=== PATIENT | male | born 1955 | race Asian ===

== ENCOUNTER 2016-11-25 17:53 | Observation (INO) | payer MEDICARE ==
[~2016-11-25] VITALS: Ht 160 cm; Wt 71.5 kg
[~2016-11-25 17:53] MED LIST: ASPI-515 PO; IBUP-1 PO; LEVO100T5 PO; LEVO88TA4 PO; LISI-170 PO; METF10002 PO; OXYC1TAB7 PO; PANT40TA3 PO; PARO20TA55 PO; PRED10TA PO; SIMV40TA PO
[2016-11-25] MEDS ORDERED: PARO20TA4 PO (18:26)
[2016-11-25] MEDS ORDERED: SODIUM CHLORIDE FLUSH 10ML SYR IVF ONE (18:30)
[2016-11-25 18:44] LABS: ASPARTATE AMINO TRANSFERASE 33 U/L (15-37); BLOOD UREA NITROGEN 29 mg/dL (7-18)
[2016-11-25 18:49] LABS: IS PT STATUS REG ER OR PRE ER? YES
[2016-11-25 20:37] VITALS: BP 157/92
[2016-11-25] MEDS ORDERED: DOCUSATE 100 MG CAPSULE PO PRN (21:00)
[2016-11-25] MEDS ORDERED: ACETAMINOPHEN 325 MG TABLET PO PRN (21:00)
[2016-11-25] MEDS ORDERED: LABETALOL 5MG/ML, 20ML IVPush PRN (21:00)
[2016-11-25] MEDS: LISINOPRIL 5 MG TABLET PO SCH (21:00)
[2016-11-25 22:21] VITALS: BP 157/97
[2016-11-25] MEDS ORDERED: ALUMINUM/MAG/SIMETHICONE 30 ML UDC PO PRN (22:30)
[2016-11-25] MEDS: ASPIRIN 81 MG TABLET EC PO SCH (23:19)
[2016-11-25] MEDS: HEPARIN 5,000 UNITS/ML, 1ML SQ SCH (23:20)
[2016-11-25] MEDS: TEMAZEPAM 15 MG CAPSULE PO PRN (23:21)
[2016-11-25] MEDS ORDERED: NITROGLYCERIN 0.4 MG BOTTLE (25 TABS) SL PRN (23:30)
[2016-11-25] MEDS: PAROXETINE 20 MG TABLET PO SCH (23:30)
[2016-11-26 00:33] VITALS: BP 134/76
[2016-11-26 01:10] LABS: IS PT STATUS REG ER OR PRE ER? NO
[2016-11-26] MEDS: TEMAZEPAM 15 MG CAPSULE PO PRN ×2 (01:26→23:03)
[2016-11-26 06:58] LABS: BLOOD UREA NITROGEN 33 mg/dL (7-18)
[2016-11-26 07:09] LABS: IS PT STATUS REG ER OR PRE ER? NO
[2016-11-26] MEDS: HEPARIN 5,000 UNITS/ML, 1ML SQ SCH ×3 (07:30→20:45)
[2016-11-26 07:31] VITALS: BP 134/82
[2016-11-26] MEDS ORDERED: REGADENOSON 0.4 MG/5 ML SYRINGE ONE (08:08)
[2016-11-26] MEDS ORDERED: PAROXETINE 20 MG TABLET PO SCH (09:00)
[2016-11-26] MEDS: PAROXETINE 20 MG TABLET PO SCH ×2 (09:00→20:45)
[2016-11-26] MEDS: LEVOTHYROXINE 88 MCG TABLET PO SCH (11:38)
[2016-11-26 14:56] VITALS: BP 131/92
[2016-11-26] MEDS ORDERED: LISI5TAB7 PO (15:13)
[2016-11-26 19:44] VITALS: BP 155/94
[2016-11-26] MEDS: LISINOPRIL 5 MG TABLET PO SCH (20:45)
[2016-11-26] MEDS: ASPIRIN 81 MG TABLET EC PO SCH (20:45)
[2016-11-27] MEDS: TEMAZEPAM 15 MG CAPSULE PO PRN (00:35)
[2016-11-27 05:05] VITALS: BP 133/84
[2016-11-27] MEDS: HEPARIN 5,000 UNITS/ML, 1ML SQ SCH (05:05)
[2016-11-27] MEDS: LEVOTHYROXINE 88 MCG TABLET PO SCH (05:06)
[2016-11-27 05:31] VITALS: BP 136/87
[2016-11-27 06:31] VITALS: BP 137/87
== END 2016-11-27 13:10 | disposition home or self-care (01) ==
LOC: ED 19:42 → INTOOBSV 19:45 → EDIP 19:45 → 5SO 20:32 → 3NW 11-27 05:22
DX: R07.89 Other chest pain (principal); E03.9 Hypothyroidism, unspecified; E11.42 Type 2 diabetes mellitus with diabetic polyneuropathy; E11.65 Type 2 diabetes mellitus with hyperglycemia; F32.9 Major depressive disorder, single episode, unspecified; F41.9 Anxiety disorder, unspecified; I11.0 Hypertensive heart disease with heart failure; I50.32 Chronic diastolic (congestive) heart failure; K21.9 Gastro-esophageal reflux disease without esophagitis; M10.9 Gout, unspecified; M33.20 Polymyositis, organ involvement unspecified; Z79.899 Other long term (current) drug therapy; Z82.0 Family history of epilepsy and other diseases of the nervous system; Z82.3 Family history of stroke
CPT/HCPCS: 36415; 71010; 78452; 80048; 80053; 82962; 83735; 84439; 84443; 84484; 85025; 85610; 85730; 93005; 93017; 96372; 97163; 97166; 99285; A9502; C9898; G0378; J1644; J2785

== ENCOUNTER 2016-12-06 09:28 | Emergency (ER) | payer MEDICARE ==
[~2016-12-06] VITALS: Ht 160 cm; Wt 75.0 kg
[~2016-12-06 09:28] MED LIST changes: +LISI5TAB7 PO; +PARO20TA4 PO
[2016-12-06 11:00] VITALS: BP 143/89
[2016-12-06 11:37] LABS: BLOOD UREA NITROGEN 26 mg/dL (7-18)
[2016-12-06 11:42] LABS: IS PT STATUS REG ER OR PRE ER? YES
== END 2016-12-06 12:46 | disposition home or self-care (01) ==
LOC: ED 10:58
DX: I10 Essential (primary) hypertension (principal); R06.00 Dyspnea, unspecified; E11.9 Type 2 diabetes mellitus without complications; M19.90 Unspecified osteoarthritis, unspecified site; Z88.8 Allergy status to other drugs, medicaments and biological substances
CPT/HCPCS: 36415; 80048; 82040; 83605; 84484; 85025; 93005; 99285

== ENCOUNTER 2017-03-26 19:58 | Emergency (ER) | payer MEDICARE ==
[~2017-03-26] VITALS: Ht 160 cm; Wt 75.0 kg
[~2017-03-26 19:58] MED LIST changes: -IBUP-1 PO; +IBUP-11 PO; -PARO20TA55 PO; +PARO20TA98 PO
[2017-03-26 20:02] VITALS: BP 124/86
[2017-03-26 21:02] LABS: HEMATOCRIT 39.7 % (39.2-51.8); HEMOGLOBIN 13.4 g/dL (13.7-18.0); WHITE BLOOD COUNT 7.4 x10^3/uL (3.4-10)
== END 2017-03-27 02:35 | disposition home or self-care (01) ==
LOC: ED 23:59
DX: M79.605 Pain in left leg (principal); M13.172 Monoarthritis, not elsewhere classified, left ankle and foot; E11.9 Type 2 diabetes mellitus without complications; I10 Essential (primary) hypertension
CPT/HCPCS: 36415; 82945; 83615; 84157; 84550; 84560; 85025; 85651; 85810; 86141; 87070; 87205; 89050; 89051; 89060; 99285

== ENCOUNTER → 2017-06-28 | Outpatient (CLI) | payer MEDICARE | END | disposition home or self-care (01) | LOC: RAD 20:20 | PROVIDERS: ATTEND Family Medicine | DX: J18.9 Pneumonia, unspecified organism (principal) | CPT/HCPCS: 71020 ==

== ENCOUNTER 2017-09-02 23:17 | Emergency (ER) | payer MEDICARE ==
[~2017-09-02] VITALS: Ht 160 cm; Wt 64.0 kg
[~2017-09-02 23:17] MED LIST changes: +PRED20TA PO
[2017-09-03] MEDS ORDERED: OXYcodone/APAP 5/325MG TABLET PO ONE (00:30)
[2017-09-03] MEDS ORDERED: OXYcodone/APAP 5/325MG TABLET ONE (01:07)
[2017-09-03 01:54] VITALS: BP 143/93
== END 2017-09-03 01:57 | disposition home or self-care (01) ==
LOC: ED 09-03 00:17
DX: S06.0X0A Concussion without loss of consciousness, initial encounter (principal); S16.1XXA Strain of muscle, fascia and tendon at neck level, initial encounter; I10 Essential (primary) hypertension; E11.9 Type 2 diabetes mellitus without complications; W19.XXXA Unspecified fall, initial encounter; Y93.89 Activity, other specified; Y92.89 Other specified places as the place of occurrence of the external cause; Y99.8 Other external cause status
CPT/HCPCS: 70450; 72125; 99284

== ENCOUNTER 2017-09-27 15:14 | Emergency (ER) | payer MEDICARE ==
[~2017-09-27] VITALS: Ht 160 cm; Wt 64.0 kg
[2017-09-27 15:21] VITALS: BP 131/88
== END 2017-09-27 18:46 | disposition home or self-care (01) ==
LOC: ED 17:10
DX: S83.91XA Sprain of unspecified site of right knee, initial encounter (principal); M19.90 Unspecified osteoarthritis, unspecified site; E11.9 Type 2 diabetes mellitus without complications; I10 Essential (primary) hypertension; G71.0 Muscular dystrophy; M10.9 Gout, unspecified; W01.0XXA Fall on same level from slipping, tripping and stumbling without subsequent striking against object, initial encounter; Y93.89 Activity, other specified; Y99.8 Other external cause status; Y92.89 Other specified places as the place of occurrence of the external cause
CPT/HCPCS: 99284

== ENCOUNTER 2018-02-05 19:55 | Emergency (ER) | payer MEDICARE, MEDICAID ==
[~2018-02-05] VITALS: Ht 160 cm; Wt 65.0 kg
[2018-02-05 20:03] VITALS: BP 104/72
[2018-02-05] MEDS ORDERED: TRIAMCINOLONE ACETONIDE 40 MG/ML, 1ML MC ONE (21:00)
[2018-02-05] MEDS ORDERED: LIDOCAINE 1%, 10ML INFIL ONE (21:00)
[2018-02-05] MEDS ORDERED: LIDOCAINE-MPF 2%, 2ML ONE (21:03)
[2018-02-05 21:09] LABS: BASOPHILS # (AUTO) 0.04 x10^3/uL (0-0.1); BASOPHILS % (AUTO) 1 % (0-1); EOSINOPHILS # (AUTO) 0.14 x10^3/uL (0-0.4); EOSINOPHILS % (AUTO) 2 % (1-7); LYMPHOCYTES # (AUTO) 1.45 x10^3/uL (1-3.4); LYMPHOCYTES % (AUTO) 24 % (22-44); MD NO; MEAN CORPUSCULAR HEMOGLOBIN 29.4 pg (27.5-34.5); MEAN CORPUSCULAR HGB CONC 33.6 g/dL (33.2-36.2); MEAN CORPUSCULAR VOLUME 87.4 fL (81-97); MEAN PLATELET VOLUME 6.9 fL (7.4-10.4); MONOCYTES # (AUTO) 0.66 x10^3/uL (0.2-0.8); MONOCYTES % (AUTO) 11 % (2-9); NEUTROPHILS # (AUTO) 3.88 x10^3/uL (1.8-6.8); NEUTROPHILS % (AUTO) 63 % (42-75); PLATELET COUNT 369 x10^3/uL (130-400); RED CELL DISTRIBUTION WIDTH 14.5 % (9.4-14.8)
[2018-02-05 21:10] LABS: HCT (SEDRATE) 39.3 % (39.2-51.8)
[2018-02-05 21:21] LABS: ANION GAP 6 mmol/L (5-15); C-REACTIVE PROTEIN, QUANT 0.73 mg/dL (0.02-0.49); CALCIUM 8.4 mg/dL (8.5-10.1); CHLORIDE 104 mmol/L (98-107)
== END 2018-02-06 00:18 | disposition home or self-care (01) ==
LOC: ED 22:58
DX: M13.161 Monoarthritis, not elsewhere classified, right knee (principal); M25.461 Effusion, right knee; I10 Essential (primary) hypertension; M79.661 Pain in right lower leg; Z88.8 Allergy status to other drugs, medicaments and biological substances
CPT/HCPCS: 20610; 36415; 80048; 82040; 84550; 85025; 85651; 85810; 86140; 87070; 87205; 89050; 89060; 99285

== ENCOUNTER 2018-04-30 19:27 | Emergency (ER) | payer MEDICARE, MEDICAID ==
[~2018-04-30] VITALS: Ht 160 cm; Wt 65.0 kg
[2018-04-30 19:36] VITALS: BP 155/93
== END 2018-04-30 20:46 | disposition home or self-care (01) ==
LOC: ED 20:15
DX: S83.92XA Sprain of unspecified site of left knee, initial encounter (principal); I10 Essential (primary) hypertension; Z79.899 Other long term (current) drug therapy; Z88.8 Allergy status to other drugs, medicaments and biological substances; X58.XXXA Exposure to other specified factors, initial encounter; Y93.89 Activity, other specified; Y99.8 Other external cause status; Y92.009 Unspecified place in unspecified non-institutional (private) residence as the place of occurrence of the external cause
CPT/HCPCS: 29505; 99284

== ENCOUNTER 2018-08-01 08:00 | Outpatient (CLI) | payer MEDICARE, MEDICAID ==
[~2018-08-01] VITALS: Ht 160 cm; Wt 68.2 kg
[2018-08-01] MEDS ORDERED: LISI-167 PO (10:25)
== END 2018-08-01 23:59 | disposition home or self-care (01) ==
LOC: CARD 08:00 → EDSTATUS 08-03 07:00
PROVIDERS: ATTEND Colon & Rectal Surgery
DX: Z01.818 Encounter for other preprocedural examination (principal); M25.50 Pain in unspecified joint
CPT/HCPCS: 93005

== ENCOUNTER 2019-01-25 17:18 | Emergency (ER) | payer MEDICARE, MEDICAID ==
[~2019-01-25] VITALS: Ht 160 cm; Wt 68.8 kg
[~2019-01-25 17:18] MED LIST changes: +LISI-167 PO
[2019-01-25 17:42] VITALS: BP 150/89
[2019-01-25 19:28] LABS: BASOPHILS # (AUTO) 0.02 x10^3/uL (0-0.1); BASOPHILS % (AUTO) 0 % (0-1); EOSINOPHILS # (AUTO) 0.12 x10^3/uL (0-0.4); EOSINOPHILS % (AUTO) 1 % (1-7); LYMPHOCYTES # (AUTO) 1.49 x10^3/uL (1-3.4); LYMPHOCYTES % (AUTO) 18 % (22-44); MD NO; MEAN CORPUSCULAR HEMOGLOBIN 29.8 pg (27.5-34.5); MEAN CORPUSCULAR VOLUME 90.5 fL (81-97); MEAN PLATELET VOLUME 8.6 fL (7.4-10.4); MONOCYTES # (AUTO) 1.02 x10^3/uL (0.2-0.8); MONOCYTES % (AUTO) 12 % (2-9); NEUTROPHILS % (AUTO) 69 % (42-75); PLATELET COUNT 212 x10^3/uL (130-400); RED BLOOD COUNT 4.64 x10^6/uL (4.38-5.82); RED CELL DISTRIBUTION WIDTH 14.2 % (9.4-14.8)
[2019-01-25] MEDS ORDERED: COLCHICINE 0.6 MG CAPSULE PO ONE (20:00)
[2019-01-25] MEDS ORDERED: COLCHICINE 0.6 MG CAPSULE ONE (20:10)
== END 2019-01-25 21:27 | disposition home or self-care (01) ==
LOC: ED 20:24
DX: M13.131 Monoarthritis, not elsewhere classified, right wrist (principal); M10.031 Idiopathic gout, right wrist; E11.9 Type 2 diabetes mellitus without complications
CPT/HCPCS: 36415; 73110; 84550; 85025; 85651; 99284; J7512

== ENCOUNTER 2020-04-17 19:40 | Observation (INO) | payer MEDICARE, MEDICAID ==
[~2020-04-17] VITALS: Ht 160 cm; Wt 69.2 kg
--- NOTE | 2020-04-17 19:45 | NUR ---
Note undone in EDM - 04/17/20 at 2358 by LARS Assumed care of pt. A&o x4, answering questions appropriately. States increased weakness/fatigue/SOB x1 week, worsening tonight. Per pt, he had a fall yesterday. (+) head strike, (-) LOC, (-) thinners, no hx of falls. Pt also c/o fever/chills x1 day with decreased PO intake d/t lack of appetite. Per previous shift RN, pt has been taking PO DM meds as perscribed despite decreased PO intake. Pt denies pain to this RN. VSS. O2 mid 90s 2L NC. No s/sx acute respiratory distress
--- NOTE | 2020-04-17 19:49 | NUR ---
OUTSIDE SALES EXECUTIVE: EKG DONE IN TRIAGE
[2020-04-17 20:33] LABS: BASOPHILS % (AUTO) 1 % (0-1); EOSINOPHILS % (AUTO) 1 % (1-7); LYMPHOCYTES % (AUTO) 18 % (22-44); MEAN CORPUSCULAR HGB CONC 32.6 g/dL (33.2-36.2); MEAN PLATELET VOLUME 8.4 fL (7.4-10.4); MONOCYTES % (AUTO) 11 % (2-9); NEUTROPHILS % (AUTO) 70 % (42-75); PLATELET COUNT 299 x10^3/uL (130-400); RED BLOOD COUNT 4.87 x10^6/uL (4.38-5.82); RED CELL DISTRIBUTION WIDTH 14.5 % (9.4-14.8)
[2020-04-17 20:34] LABS: MD NO
[2020-04-17 20:38] LABS: ALANINE AMINOTRANSFERASE 43 U/L (12-78); ALBUMIN 3.8 g/dL (3.4-5.0); ANION GAP 8 mmol/L (5-15); CALCIUM 8.6 mg/dL (8.5-10.1); CHLORIDE 106 mmol/L (98-107); CREATININE 1.12 mg/dL (0.7-1.3)
[2020-04-17 20:42] LABS: ALKALINE PHOSPHATASE 39 U/L (45-117); BILIRUBIN,TOTAL 0.5 mg/dL (0.2-1.0); TOTAL PROTEIN 7.4 g/dL (6.4-8.2); TROPONIN I < 0.015 ng/mL (0.000-0.045)
[2020-04-17] MEDS ORDERED: SODIUM CHLORIDE 0.9%, 500ML IVBOLUS ONE (21:30)
--- NOTE | 2020-04-17 21:46 | NUR ---
Pt traveled to [place] with pollution control technician
[2020-04-17] MEDS ORDERED: OMNIPAQUE 350 MG/ML, 75ML BOTTLE ONE (21:55)
--- NOTE | 2020-04-17 22:00 | NUR ---
Note alexandria in EDM - 04/17/20 at 2359 by LARS Pt's son in law at bedside, screened for covid sx. States pt lives with with son and partner. Pt states all updates can be given to both son and his partner. Son Nico Mccarthy . Partner Vinny .
--- NOTE | 2020-04-17 22:39 | NUR ---
Provider at bedside
--- NOTE | 2020-04-17 23:11 | NUR ---
Significant SCHMIDT noted with ambulation trial. O2 to 91% RA
--- NOTE | 2020-04-17 23:40 | NUR ---
Hospitalist at bedside
[2020-04-18] MEDS ORDERED: ACETAMINOPHEN 325 MG TABLET PO PRN (00:30)
[2020-04-18] MEDS ORDERED: ENALAPRILAT 1.25 MG/ML, 2ML IVPush PRN (00:30)
[2020-04-18] MEDS ORDERED: PROMETHAZINE 25 MG/ML, 1ML IM PRN (00:30)
[2020-04-18] MEDS ORDERED: LISINOPRIL 10 MG TABLET PO SCH (00:30)
[2020-04-18] MEDS ORDERED: LABETALOL 5MG/ML, 20ML IVPush PRN (00:30)
--- NOTE | 2020-04-18 00:34 | NUR ---
Report given to Lisa MUHAMMAD
[2020-04-18] MEDS ORDERED: ASPI81TA59 PO (01:34)
[2020-04-18] MEDS ORDERED: METH500T7 PO (01:34)
[2020-04-18 01:35] VITALS: BP 179/121
[2020-04-18] MEDS: METHOCARBAMOL 500 MG TABLET PO SCH ×2 (02:52→20:34)
[2020-04-18] MEDS: PAROXETINE 20 MG TABLET PO SCH ×2 (02:52→20:34)
[2020-04-18 02:54] VITALS: BP 134/75
[2020-04-18] MEDS: HYDROcodone/APAP 5/325 TABLET PO PRN ×2 (03:50→09:24)
[2020-04-18 05:32] LABS: BASOPHILS % (AUTO) 1 % (0-1); EOSINOPHILS % (AUTO) 1 % (1-7); LYMPHOCYTES % (AUTO) 19 % (22-44); MEAN CORPUSCULAR HEMOGLOBIN 29.1 pg (27.5-34.5); MEAN CORPUSCULAR HGB CONC 32.9 g/dL (33.2-36.2); MEAN PLATELET VOLUME 8.2 fL (7.4-10.4); MONOCYTES % (AUTO) 10 % (2-9); NEUTROPHILS % (AUTO) 69 % (42-75); PLATELET COUNT 258 x10^3/uL (130-400); RED BLOOD COUNT 4.31 x10^6/uL (4.38-5.82); RED CELL DISTRIBUTION WIDTH 14.7 % (9.4-14.8)
[2020-04-18 06:14] LABS: MD NO
[2020-04-18 08:14] VITALS: BP 135/84
[2020-04-18] MEDS ORDERED: PAROXETINE 20 MG TABLET PO SCH (09:00)
[2020-04-18] MEDS: LEVOTHYROXINE 88 MCG TABLET PO SCH (09:15)
[2020-04-18] MEDS ORDERED: FLU VACC QS2020-21(6MOS UP)/PF 60MCG/0.5 ML SYR IM ONE (11:00)
[2020-04-18 12:55] VITALS: BP 163/96
[2020-04-18 20:24] VITALS: BP 151/98
[2020-04-18] MEDS: LISINOPRIL 20 MG TABLET PO SCH (20:34)
[2020-04-18] MEDS ORDERED: METHOCARBAMOL 500 MG TABLET PO SCH (21:00)
[2020-04-19 00:50] VITALS: BP 153/81
[2020-04-19 06:10] LABS: TROPONIN I < 0.015 ng/mL (0.000-0.045)
[2020-04-19 08:16] VITALS: BP 121/77
[2020-04-19] MEDS: LEVOTHYROXINE 88 MCG TABLET PO SCH (08:18)
[2020-04-19] MEDS ORDERED: REGADENOSON 0.4 MG/5 ML SYRINGE ONE (09:36)
[2020-04-19 14:09] VITALS: BP 132/79
[2020-04-19 19:53] VITALS: BP 154/93
[2020-04-19] MEDS: PAROXETINE 20 MG TABLET PO SCH (20:46)
[2020-04-19] MEDS: LISINOPRIL 20 MG TABLET PO SCH (20:47)
[2020-04-19] MEDS: METHOCARBAMOL 500 MG TABLET PO SCH (20:47)
[2020-04-20 02:15] VITALS: BP 149/87
[2020-04-20] MEDS: LEVOTHYROXINE 88 MCG TABLET PO SCH (10:03)
[2020-04-20 10:06] VITALS: BP 159/98
== END 2020-04-20 10:45 | disposition home or self-care (01) ==
LOC: ED 20:49 → INTOOBSV 23:46 → EDIP 23:46 → 5SO 04-18 00:50 → DCLOUNGE 04-20 10:34
PROVIDERS: ADMIT Family Medicine; ATTEND Internal Medicine
DX: R06.00 Dyspnea, unspecified (principal); R07.89 Other chest pain; R07.2 Precordial pain; I11.0 Hypertensive heart disease with heart failure; I50.33 Acute on chronic diastolic (congestive) heart failure; I16.1 Hypertensive emergency; I31.8 Other specified diseases of pericardium; I71.2 Thoracic aortic aneurysm, without rupture; M33.20 Polymyositis, organ involvement unspecified; E11.40 Type 2 diabetes mellitus with diabetic neuropathy, unspecified; K21.9 Gastro-esophageal reflux disease without esophagitis; F41.8 Other specified anxiety disorders; E03.9 Hypothyroidism, unspecified; R53.81 Other malaise; M10.9 Gout, unspecified; G89.29 Other chronic pain; M54.9 Dorsalgia, unspecified; J45.20 Mild intermittent asthma, uncomplicated; N28.1 Cyst of kidney, acquired; I71.9 Aortic aneurysm of unspecified site, without rupture; J98.11 Atelectasis; Z79.899 Other long term (current) drug therapy; Z23 Encounter for immunization
CPT/HCPCS: 36415; 71045; 71275; 78452; 80053; 83036; 83690; 83880; 84443; 84484; 85025; 85379; 90686; 93005; 93017; 93306; 96374; 99285; A9502; C9898; G0008; G0378; J2785; J7040; Q9967

== ENCOUNTER 2020-05-24 13:40 | Emergency (ER) | payer MEDICARE, MEDICAID ==
[~2020-05-24] VITALS: Ht 160 cm; Wt 75.0 kg
[~2020-05-24 13:40] MED LIST changes: +ASPI81TA59 PO; +METH500T7 PO
--- NOTE | 2020-05-24 14:41 | NUR ---
C/O INCREASE WEAKNESS, SOB, AND DIZZINESS TODAY. PT PLACED ON CARDIAC AND VITAL SIGNS MONITORS. CALL LIGHT WITHIN REACH.
[2020-05-24 15:02] LABS: ANION GAP 6 mmol/L (5-15); CALCIUM 8.6 mg/dL (8.5-10.1); CHLORIDE 108 mmol/L (98-107); CREATININE 1.19 mg/dL (0.7-1.3)
[2020-05-24 15:03] LABS: ALANINE AMINOTRANSFERASE 42 U/L (12-78); ALBUMIN 3.6 g/dL (3.4-5.0)
[2020-05-24 15:05] LABS: ALKALINE PHOSPHATASE 37 U/L (45-117); BILIRUBIN,TOTAL 0.3 mg/dL (0.2-1.0); TOTAL PROTEIN 7.1 g/dL (6.4-8.2); TROPONIN I < 0.015 ng/mL (0.000-0.045)
[2020-05-24 15:07] LABS: BASOPHILS % (AUTO) 1 % (0-1); EOSINOPHILS % (AUTO) 1 % (1-7); LYMPHOCYTES % (AUTO) 24 % (22-44); MEAN CORPUSCULAR HEMOGLOBIN 29.5 pg (27.5-34.5); MEAN CORPUSCULAR HGB CONC 32.7 g/dL (33.2-36.2); MEAN PLATELET VOLUME 7.6 fL (7.4-10.4); MONOCYTES % (AUTO) 10 % (2-9); NEUTROPHILS % (AUTO) 63 % (42-75); PLATELET COUNT 277 x10^3/uL (130-400); RED BLOOD COUNT 4.43 x10^6/uL (4.38-5.82)
[2020-05-24 15:08] LABS: MD NO
[2020-05-24 16:22] VITALS: BP 139/86
== END 2020-05-24 16:38 | disposition home or self-care (01) ==
LOC: ED 15:29
DX: R06.00 Dyspnea, unspecified (principal); R53.1 Weakness; R53.83 Other fatigue; R07.9 Chest pain, unspecified; R94.31 Abnormal electrocardiogram [ECG] [EKG]; I10 Essential (primary) hypertension; E11.9 Type 2 diabetes mellitus without complications
CPT/HCPCS: 36415; 71045; 80053; 83735; 83880; 84484; 85025; 93005; 99285

== ENCOUNTER 2020-08-08 01:35 | Emergency (ER) | payer MEDICARE, MEDICAID ==
[~2020-08-08] VITALS: Ht 160 cm; Wt 70.0 kg
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
--- NOTE | 2020-08-08 01:47 | NUR ---
TASK RN: PT REFUSING TYLENOL AT THIS TIME.
[2020-08-08] MEDS ORDERED: ACETAMINOPHEN 500 MG TABLET PO ONE (02:00)
[2020-08-08 03:21] VITALS: BP 134/90
--- NOTE | 2020-08-08 03:22 | NUR ---
Pt dc'd with written and verbal dc instructions and states undertanding. Pt out [place] dept [place]. Pt normally uses crutches. Pt has safe ride on the way.
== END 2020-08-08 03:25 | disposition home or self-care (01) ==
LOC: ED 02:05
DX: S20.219A Contusion of unspecified front wall of thorax, initial encounter (principal); G89.11 Acute pain due to trauma; M54.6 Pain in thoracic spine; I10 Essential (primary) hypertension; E11.9 Type 2 diabetes mellitus without complications; W18.39XA Other fall on same level, initial encounter; Y93.89 Activity, other specified; Y92.89 Other specified places as the place of occurrence of the external cause; Y99.8 Other external cause status
CPT/HCPCS: 71045; 99283

== ENCOUNTER 2020-10-21 23:59 | Inpatient (IN) | payer MEDICARE, MEDICAID ==
[~2020-10-21] VITALS: Ht 160 cm; Wt 71.3 kg
[~2020-10-21 23:59] MED LIST changes: -ASPI-515 PO; +ASPI-963 PO; +METH-639 PO; -METH500T7 PO
[2020-10-22] MEDS ORDERED: methylPREDNISolone SOD SUCC 125 MG/2 ML ONE (00:23)
[2020-10-22] MEDS ORDERED: FAMOTIDINE 20 MG/2 ML ONE (00:23)
[2020-10-22] MEDS ORDERED: SODIUM CHLORIDE 0.9% 1,000ML IVBOLUS ONE (00:30)
[2020-10-22] MEDS ORDERED: FAMOTIDINE 20 MG/2 ML IVPush ONE (00:30)
[2020-10-22] MEDS ORDERED: SODIUM CHLORIDE FLUSH 10ML SYR IVF ONE (00:30)
[2020-10-22] MEDS ORDERED: methylPREDNISolone SOD SUCC 125 MG/2 ML IVPush ONE (00:30)
--- NOTE | 2020-10-22 00:31 | NUR ---
pt resting comfortably in bned with color television console monitor in place and head of bed elevated, satting well on room air with ivf infusing well at left ac, medications given as ordered. pt arousable to voice, complaining of bilateral knee pain rated 3/10. no signs or symptoms of acute distress noted respirations even and unlabored.
--- NOTE | 2020-10-22 00:57 | NUR ---
PT ABLE TO VOID INTO URINAL. HOSPITALIST AT BEDSIDE TO ASSESS. PT IN BED WITH NO SIGNS OR SYMPTOMS OF ACUTE DSITRESS NOTED RESPIRATIONS EVEN AND UNLABORED, IVF INFUSING WELL AT LEFT AC.
[2020-10-22] MEDS ORDERED: ACETAMINOPHEN 325 MG TABLET PO PRN (01:30)
[2020-10-22] MEDS ORDERED: HYDROcodone/APAP 5/325 TABLET PO PRN (01:30)
[2020-10-22] MEDS: INSULIN LISPRO 100 UNITS/ML, PEN SQ-INSULIN SCH ×3 (01:30→11:36)
[2020-10-22] MEDS ORDERED: LABETALOL 5MG/ML, 20ML IVPush PRN (01:30)
[2020-10-22] MEDS ORDERED: ONDANSETRON 2MG/ML, 2ML IVPush PRN (01:30)
[2020-10-22 01:35] VITALS: BP 161/94
[2020-10-22] MEDS ORDERED: PRED5TAB PO (01:36)
[2020-10-22 04:31] VITALS: BP 151/90
[2020-10-22] MEDS: methylPREDNISolone SOD SUCC 125 MG/2 ML IVPush SCH ×2 (06:35→11:35)
[2020-10-22 07:39] VITALS: BP 143/83
[2020-10-22 07:58] VITALS: BP 127/83
[2020-10-22] MEDS ORDERED: METHOCARBAMOL 500 MG TABLET PO SCH (09:00)
[2020-10-22] MEDS ORDERED: LEVOTHYROXINE 88 MCG TABLET PO SCH (09:00)
[2020-10-22] MEDS ORDERED: PAROXETINE 20 MG TABLET PO SCH (09:00)
[2020-10-22] MEDS ORDERED: FAMOTIDINE 20 MG/2 ML IVPush SCH (09:00)
[2020-10-22] MEDS ORDERED: AMLODIPINE 5 MG TABLET PO SCH (09:00)
[2020-10-22] MEDS ORDERED: AMLO-150 PO (10:13)
[2020-10-22 11:44] VITALS: BP 155/89
== END 2020-10-22 13:10 | disposition home or self-care (01) | DRG 916 ==
LOC: ED 10-22 00:41 → EDIP 10-22 00:48 → UNDOADMIN 10-22 00:48 → EDIP 10-22 01:06 → 4WST 10-22 01:15 → DCLOUNGE 10-22 13:00
PROVIDERS: ADMIT Family Medicine; ATTEND Hospitalist
DX: T78.3XXA Angioneurotic edema, initial encounter (principal); I11.0 Hypertensive heart disease with heart failure; R13.10 Dysphagia, unspecified; M10.9 Gout, unspecified; T46.4X5A Adverse effect of angiotensin-converting-enzyme inhibitors, initial encounter; M19.90 Unspecified osteoarthritis, unspecified site; J45.909 Unspecified asthma, uncomplicated; K21.9 Gastro-esophageal reflux disease without esophagitis; F32.9 Major depressive disorder, single episode, unspecified; F41.9 Anxiety disorder, unspecified; E03.9 Hypothyroidism, unspecified; G89.29 Other chronic pain; I50.9 Heart failure, unspecified; M54.9 Dorsalgia, unspecified; I71.2 Thoracic aortic aneurysm, without rupture; E11.42 Type 2 diabetes mellitus with diabetic polyneuropathy; Z82.3 Family history of stroke; Z88.6 Allergy status to analgesic agent; Z88.8 Allergy status to other drugs, medicaments and biological substances; Y92.89 Other specified places as the place of occurrence of the external cause; Z79.84 Long term (current) use of oral hypoglycemic drugs; Z79.899 Other long term (current) drug therapy
CPT/HCPCS: 82962; 93005; 99285; J1815; J2930; J7030

== ENCOUNTER 2020-11-07 15:19 | Emergency (ER) | payer MEDICARE, MEDICAID ==
[~2020-11-07] VITALS: Ht 172.7 cm; Wt 74.0 kg
[~2020-11-07 15:19] MED LIST changes: +AMLO-150 PO; +PRED5TAB PO
[2020-11-07 15:58] LABS: BASOPHILS % (AUTO) 1 % (0-1); EOSINOPHILS % (AUTO) 0 % (1-7); LYMPHOCYTES % (AUTO) 13 % (22-44); MEAN CORPUSCULAR HEMOGLOBIN 28.1 pg (27.5-34.5); MEAN CORPUSCULAR HGB CONC 32.7 g/dL (33.2-36.2); MEAN PLATELET VOLUME 7.8 fL (7.4-10.4); MONOCYTES % (AUTO) 13 % (2-9); NEUTROPHILS % (AUTO) 73 % (42-75); PLATELET COUNT 309 x10^3/uL (130-400); RED BLOOD COUNT 4.45 x10^6/uL (4.38-5.82); RED CELL DISTRIBUTION WIDTH 14.5 % (9.4-14.8)
[2020-11-07 16:02] LABS: ALBUMIN 3.6 g/dL (3.4-5.0); ANION GAP 8 mmol/L (5-15); CALCIUM 9.2 mg/dL (8.5-10.1); CHLORIDE 103 mmol/L (98-107); CREATININE 1.21 mg/dL (0.7-1.3)
--- NOTE | 2020-11-07 16:39 | NUR ---
BREAK RN: PT TO XRAY
--- NOTE | 2020-11-07 17:00 | NUR ---
BREAK RN: BACK OF IMAGING. VSS. PT MOANS OUT IN PAIN BUT IS ABLE TO STOP AND TALKS IN NORMAL CONVERSION TALKING ABOUT NON RELATED THINKGS SUCH HAVING A CRUSH ON SOMEONE NAMED TATY.
[2020-11-07 17:06] LABS: MD SCAN
[2020-11-07] MEDS ORDERED: OXYcodone/APAP 5/325MG TABLET ONE (17:20)
--- NOTE | 2020-11-07 17:21 | NUR ---
MEDS ADMIN PER SEP.
[2020-11-07] MEDS ORDERED: OXYcodone/APAP 5/325MG TABLET PO ONE (17:30)
[2020-11-07 17:38] LABS: HCT (SEDRATE) 37.9 % (39.2-51.8)
[2020-11-07 17:56] LABS: ALBUMIN 3.6 g/dL (3.4-5.0); BILIRUBIN, DIRECT 0.5 mg/dL (0.1-0.2)
[2020-11-07 17:59] LABS: BILIRUBIN,INDIRECT 0.6 mg/dL (0.0-2.0); BILIRUBIN,TOTAL 1.1 mg/dL (0.2-1.0); TOTAL PROTEIN 7.7 g/dL (6.4-8.2)
[2020-11-07 18:25] VITALS: BP 128/83
--- NOTE | 2020-11-07 18:50 | NUR ---
ALL RESULTS ARE BACK AT THIS TIME. CHART UP FOR RECHECK.
--- NOTE | 2020-11-07 19:13 | NUR ---
PT SLEEPING ON GURNEY. RESP EVEN AND UNLABORED.
--- NOTE | 2020-11-07 19:52 | NUR ---
WIRE TEMPERER PER SEP. PT REFUSING TO STAND TO AMBULATE TO RESTROOM. ERMD NOTIFIED.
--- NOTE | 2020-11-07 20:08 | NUR ---
ERMD AT BEDSIDE TO UPDATE PT ON POC.
--- NOTE | 2020-11-07 20:28 | NUR ---
PT REFUSING TO ATTEMPT TO STAND UP TO LEAVE. PT STATING IT TAKES HOURS FOR HIM TO GET READY TO GO ANYWERE. SECURITY CALLED.
--- NOTE | 2020-11-07 20:36 | NUR ---
SECURITY ASSISTED PT TO DC.
== END 2020-11-07 20:38 | disposition home or self-care (01) ==
LOC: ED 17:48
DX: M33.22 Polymyositis with myopathy (principal); M54.5 Low back pain; E11.9 Type 2 diabetes mellitus without complications; M19.90 Unspecified osteoarthritis, unspecified site
CPT/HCPCS: 36415; 72110; 80048; 80076; 82040; 85025; 85651; 99284; J7512

== ENCOUNTER 2020-12-18 10:25 | Inpatient (IN) | payer MEDICARE, MEDICAID ==
[~2020-12-18] VITALS: Ht 160 cm; Wt 67.5 kg
--- NOTE | 2020-12-18 10:34 | NUR ---
BIB EMS FROM HOME FOR C/O BILAT LEG PAIN STARTED 1 WK AGO. PT STATES IT STARTED IN HIS ANKLES AND HAS PROGRESSED TO KNEES AND THIGHS. DENIES ANY INJURY/TRAUMA. 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 VS PAINT TINTER HR 95, 96% RA, BP 120/80. PT NOTED TO HAVE INCREASED SWELLING TO R KNEE AND BILAT ANKLES. PT RESTING ON GURNEY. MOANING. VSS. WARM BLANKETS PROVIDED. CALL LIGHT IN REACH.
--- NOTE | 2020-12-18 11:01 | NUR ---
ERP DR. SALVADOR AT BEDSIDE FOR EVAL.
[2020-12-18] MEDS ORDERED: METHOCARBAMOL 500 MG TABLET ONE (11:24)
[2020-12-18] MEDS ORDERED: HYDROcodone/APAP 10/325 MG TABLET ONE (11:24)
[2020-12-18 11:30] LABS: MEAN CORPUSCULAR HEMOGLOBIN 27.2 pg (27.5-34.5); MEAN CORPUSCULAR HGB CONC 33.1 g/dL (33.2-36.2); MEAN PLATELET VOLUME 7.3 fL (7.4-10.4); PLATELET COUNT 485 x10^3/uL (130-400); RED BLOOD COUNT 3.93 x10^6/uL (4.38-5.82); RED CELL DISTRIBUTION WIDTH 14.9 % (9.4-14.8)
--- NOTE | 2020-12-18 11:32 | NUR ---
PT MEDICATED PER SEP. RESTING ON GURREADING. VSS. US AT BEDSIDE.
[2020-12-18 11:38] LABS: ALANINE AMINOTRANSFERASE 23 U/L (12-78); ALBUMIN 2.8 g/dL (3.4-5.0); ANION GAP 11 mmol/L (5-15); CALCIUM 8.9 mg/dL (8.5-10.1); CHLORIDE 99 mmol/L (98-107)
[2020-12-18 11:41] LABS: ALKALINE PHOSPHATASE 45 U/L (45-117); CREATINE KINASE, TOTAL 216 U/L (39-308); CREATININE 1.26 mg/dL (0.7-1.3); TOTAL PROTEIN 7.1 g/dL (6.4-8.2)
[2020-12-18] MEDS ORDERED: SODIUM CHLORIDE FLUSH 10ML SYR IVF ONE (12:00)
[2020-12-18] MEDS ORDERED: METHOCARBAMOL 500 MG TABLET PO ONE (12:00)
[2020-12-18] MEDS ORDERED: SODIUM CHLORIDE 0.9% 1,000ML IVBOLUS ONE (12:00)
[2020-12-18] MEDS ORDERED: HYDROcodone/APAP 10/325 MG TABLET PO ONE (12:00)
[2020-12-18 12:07] LABS: BAND#(MANUAL) 0.41 x10^3/uL; BANDS%(MANUAL) 3 % (0-7); LYMPHS% (MANUAL) 14 % (22-44); SEGS% (MANUAL) 74 % (42-75)
[2020-12-18 12:08] LABS: METAMYELOCYTES# (MANUAL) 0.14 x10^3/uL (0-0); METAMYELOCYTES% (MANUAL) 1 % (0-1); MONOS#(MANUAL) 1.09 x10^3/uL (0.3-2.7); MONOS% (MANUAL) 8 % (2-9); SEG#(MANUAL) 10.06 x10^3/uL (1.8-6.8)
[2020-12-18 12:09] LABS: HYPOCHROMIA 1+
[2020-12-18 12:10] LABS: <PLATELET ESTIMATE> INCREASED; <PLT MORPHOLOGY> NORMAL PLT MORPH; POLYCHROMASIA 1+
--- NOTE | 2020-12-18 12:13 | NUR ---
PT CHART REVIEWED AND PLACED FOR RECHECK.
--- NOTE | 2020-12-18 12:25 | NUR ---
PT RESTING ON GURNEY. MIMS. VSS. STATES PAIN IMPROVED AND PT WAS ABLE TO SLEEP. STATES PAIN IS RETURNING.
[2020-12-18] MEDS ORDERED: OXYC1TAB14 PO (12:52)
--- NOTE | 2020-12-18 14:02 | NUR ---
PT RESTING ON GURNEY. [facility] AT BEDSIDE FOR ADMISSION.
[2020-12-18] MEDS ORDERED: BUPIVACAINE/PF-EPI 0.25% 1:200K SQ ONE (14:30)
[2020-12-18] MEDS ORDERED: LABETALOL 5MG/ML, 20ML IVPush PRN (14:30)
[2020-12-18] MEDS ORDERED: GABAPENTIN 300 MG CAPSULE PO PRN (14:30)
[2020-12-18] MEDS ORDERED: ONDANSETRON ODT 4 MG PO PRN (14:30)
[2020-12-18] MEDS ORDERED: DEXTROSE 4 GM TAB.CHEW PO PRN (14:30)
[2020-12-18] MEDS ORDERED: ONDANSETRON 2MG/ML, 2ML IVPush PRN (14:30)
[2020-12-18] MEDS ORDERED: VANCOMYCIN PER PHARMACY MC PRN (14:30)
[2020-12-18] MEDS ORDERED: hydrALAzine 20 MG/ML, 1ML IVPush PRN (14:30)
[2020-12-18] MEDS ORDERED: GLUCAGON 1 MG IM PRN (14:30)
[2020-12-18] MEDS ORDERED: ACETAMINOPHEN 325 MG TABLET PO PRN (14:30)
[2020-12-18] MEDS ORDERED: POLYETHYLENE GLYCOL 17 GM PACKET PO PRN (14:30)
[2020-12-18] MEDS ORDERED: BISACODYL 10 MG SUPP PR PRN (14:30)
[2020-12-18] MEDS ORDERED: DEXTROSE 50%, 50ML SYRINGE IVPush PRN (14:30)
[2020-12-18] MEDS ORDERED: LIDOCAINE-MPF 1%, 5ML INFIL ONE (14:30)
[2020-12-18] MEDS ORDERED: LIDOCAINE-MPF 1%, 5ML ONE (14:34)
[2020-12-18] MEDS ORDERED: BUPIVACAINE 0.25% ONE (14:34)
--- NOTE | 2020-12-18 14:37 | NUR ---
PT RESTING ON GURNEY. NADN. MANE.
--- NOTE | 2020-12-18 14:52 | NUR ---
REPORT GIVEN TO ANJALI, ALAINA RN. ALL QUESTIONS ANSWERED. AWAITING PT TRANSPORT.
[2020-12-18] MEDS: AMPICILLIN/SULBACTAM 3 GM in SODIUM CHLORIDE 0.9% 100 ML IV SCH ×2 (15:06→20:57)
[2020-12-18 15:28] VITALS: BP 125/73
[2020-12-18] MEDS ORDERED: VANCOMYCIN 1,900 MG in SODIUM CHLORIDE 0.9% 250 ML IV ONE (15:30)
[2020-12-18] MEDS ORDERED: PHARMACOKINETIC CONSULTATION MC ONE ×2 (15:30→18:00)
[2020-12-18] MEDS ORDERED: PHARMACOKINETIC MONITORING MC PRN ×2 (15:30→18:00)
[2020-12-18] MEDS: INSULIN LISPRO 100 UNITS/ML, PEN SQ-INSULIN SCH ×2 (16:00→22:59)
[2020-12-18 16:05] LABS: MICROSCOPIC NOT IND
[2020-12-18] MEDS ORDERED: COLCHICINE 0.6 MG CAPSULE PO ONE (17:00)
[2020-12-18] MEDS: HEPARIN 5,000 UNITS/ML, 1ML SQ SCH (17:01)
[2020-12-18] MEDS: METHOCARBAMOL 500 MG TABLET PO PRN ×2 (17:04→22:59)
[2020-12-18] MEDS: HYDROcodone/APAP 5/325 TABLET PO PRN (18:12)
[2020-12-18 19:00] VITALS: BP 125/73
[2020-12-18 19:21] VITALS: BP 110/70
[2020-12-18] MEDS: SODIUM CHLORIDE FLUSH 10ML SYR IVF SCH (20:57)
[2020-12-18] MEDS: COLCHICINE 0.6 MG CAPSULE PO SCH (20:58)
[2020-12-18] MEDS: ASPIRIN 81 MG TABLET CHEW PO SCH (20:58)
[2020-12-19] MEDS: HEPARIN 5,000 UNITS/ML, 1ML SQ SCH ×3 (01:16→17:56)
[2020-12-19 01:32] VITALS: BP 125/73
[2020-12-19] MEDS: AMPICILLIN/SULBACTAM 3 GM in SODIUM CHLORIDE 0.9% 100 ML IV SCH ×4 (02:52→20:29)
[2020-12-19 04:57] LABS: ANION GAP 8 mmol/L (5-15); CALCIUM 8.3 mg/dL (8.5-10.1); CHLORIDE 105 mmol/L (98-107); CREATININE 0.84 mg/dL (0.7-1.3)
[2020-12-19 04:59] LABS: BASOPHILS % (AUTO) 1 % (0-1); EOSINOPHILS % (AUTO) 2 % (1-7); LYMPHOCYTES % (AUTO) 16 % (22-44); MEAN CORPUSCULAR HEMOGLOBIN 27.9 pg (27.5-34.5); MEAN CORPUSCULAR HGB CONC 33.6 g/dL (33.2-36.2); MEAN PLATELET VOLUME 7.5 fL (7.4-10.4); MONOCYTES % (AUTO) 14 % (2-9); NEUTROPHILS % (AUTO) 67 % (42-75); PLATELET COUNT 380 x10^3/uL (130-400); RED BLOOD COUNT 3.88 x10^6/uL (4.38-5.82); RED CELL DISTRIBUTION WIDTH 15.5 % (9.4-14.8)
[2020-12-19] MEDS: LEVOTHYROXINE 88 MCG TABLET PO SCH (05:47)
[2020-12-19] MEDS: INSULIN LISPRO 100 UNITS/ML, PEN SQ-INSULIN SCH ×4 (07:00→20:34)
[2020-12-19] MEDS: PAROXETINE 20 MG TABLET PO SCH (07:56)
[2020-12-19] MEDS: SENNA/DOCUSATE TABLET PO SCH (07:56)
[2020-12-19] MEDS: SODIUM CHLORIDE FLUSH 10ML SYR IVF SCH ×2 (07:56→20:29)
[2020-12-19] MEDS: COLCHICINE 0.6 MG CAPSULE PO SCH ×2 (07:56→20:29)
[2020-12-19] MEDS: METHOCARBAMOL 500 MG TABLET PO PRN (07:57)
[2020-12-19] MEDS: HYDROcodone/APAP 5/325 TABLET PO PRN ×3 (07:57→22:43)
[2020-12-19 08:16] VITALS: BP 107/70
[2020-12-19] MEDS: VANCOMYCIN 1,300 MG in SODIUM CHLORIDE 0.9% 250 ML IV SCH (10:42)
[2020-12-19 12:10] VITALS: BP 129/79
[2020-12-19 18:56] VITALS: BP 121/76
[2020-12-19] MEDS: ASPIRIN 81 MG TABLET CHEW PO SCH (20:29)
[2020-12-20 00:16] VITALS: BP 117/72
[2020-12-20] MEDS: HEPARIN 5,000 UNITS/ML, 1ML SQ SCH ×3 (01:33→16:48)
[2020-12-20] MEDS: AMPICILLIN/SULBACTAM 3 GM in SODIUM CHLORIDE 0.9% 100 ML IV SCH ×3 (02:25→14:06)
[2020-12-20] MEDS: VANCOMYCIN 1,300 MG in SODIUM CHLORIDE 0.9% 250 ML IV SCH (05:13)
[2020-12-20] MEDS: LEVOTHYROXINE 88 MCG TABLET PO SCH (05:13)
[2020-12-20] MEDS: INSULIN LISPRO 100 UNITS/ML, PEN SQ-INSULIN SCH ×4 (07:00→20:54)
[2020-12-20] MEDS: PAROXETINE 20 MG TABLET PO SCH (07:56)
[2020-12-20] MEDS: SODIUM CHLORIDE FLUSH 10ML SYR IVF SCH ×2 (07:56→21:00)
[2020-12-20] MEDS: COLCHICINE 0.6 MG CAPSULE PO SCH ×2 (07:56→20:55)
[2020-12-20] MEDS: SENNA/DOCUSATE TABLET PO SCH (07:57)
[2020-12-20] MEDS: METHOCARBAMOL 500 MG TABLET PO PRN (12:13)
[2020-12-20] MEDS: HYDROcodone/APAP 5/325 TABLET PO PRN ×2 (12:13→20:55)
[2020-12-20 14:47] VITALS: BP 122/75
[2020-12-20 19:04] VITALS: BP 116/69
[2020-12-20] MEDS: ASPIRIN 81 MG TABLET CHEW PO SCH (20:55)
[2020-12-20] MEDS: AMOXICILLIN/CLAV 875-125MG TABLET PO SCH (20:55)
[2020-12-21 01:31] VITALS: BP 115/77
[2020-12-21] MEDS: HEPARIN 5,000 UNITS/ML, 1ML SQ SCH ×3 (01:33→17:03)
[2020-12-21] MEDS: METHOCARBAMOL 500 MG TABLET PO PRN ×2 (03:51→13:41)
[2020-12-21] MEDS ORDERED: VANCOMYCIN 1,300 MG in SODIUM CHLORIDE 0.9% 250 ML IV SCH (05:00)
[2020-12-21] MEDS: HYDROcodone/APAP 5/325 TABLET PO PRN ×2 (05:34→13:41)
[2020-12-21] MEDS: LEVOTHYROXINE 88 MCG TABLET PO SCH (05:34)
[2020-12-21 07:53] VITALS: BP 128/85
[2020-12-21] MEDS: INSULIN LISPRO 100 UNITS/ML, PEN SQ-INSULIN SCH ×4 (08:57→20:34)
[2020-12-21] MEDS: COLCHICINE 0.6 MG CAPSULE PO SCH ×2 (08:58→20:33)
[2020-12-21] MEDS: AMOXICILLIN/CLAV 875-125MG TABLET PO SCH ×2 (08:58→20:33)
[2020-12-21] MEDS: SENNA/DOCUSATE TABLET PO SCH (09:00)
[2020-12-21] MEDS: SODIUM CHLORIDE FLUSH 10ML SYR IVF SCH ×2 (09:00→20:35)
[2020-12-21] MEDS: GABAPENTIN 100 MG CAPSULE PO SCH ×3 (12:18→20:33)
[2020-12-21 15:12] VITALS: BP 129/82
[2020-12-21 19:54] VITALS: BP 132/85
[2020-12-21] MEDS: ASPIRIN 81 MG TABLET CHEW PO SCH (20:33)
[2020-12-21] MEDS: PAROXETINE 20 MG TABLET PO SCH (20:34)
[2020-12-22 00:20] VITALS: BP 121/77
[2020-12-22] MEDS: LEVOTHYROXINE 88 MCG TABLET PO SCH (05:15)
[2020-12-22] MEDS: HEPARIN 5,000 UNITS/ML, 1ML SQ SCH ×2 (05:16→17:42)
[2020-12-22 06:58] VITALS: BP 121/75
[2020-12-22] MEDS: INSULIN LISPRO 100 UNITS/ML, PEN SQ-INSULIN SCH ×4 (07:00→21:36)
[2020-12-22] MEDS: SENNA/DOCUSATE TABLET PO SCH (09:34)
[2020-12-22] MEDS: COLCHICINE 0.6 MG CAPSULE PO SCH ×2 (09:34→21:27)
[2020-12-22] MEDS: AMOXICILLIN/CLAV 875-125MG TABLET PO SCH ×2 (09:34→21:26)
[2020-12-22] MEDS: GABAPENTIN 100 MG CAPSULE PO SCH ×3 (09:35→21:26)
[2020-12-22] MEDS: SODIUM CHLORIDE FLUSH 10ML SYR IVF SCH ×2 (09:35→21:27)
[2020-12-22] MEDS: HYDROcodone/APAP 5/325 TABLET PO PRN ×2 (09:46→21:27)
[2020-12-22 14:21] VITALS: BP 108/70
[2020-12-22 19:14] VITALS: BP 114/73
[2020-12-22] MEDS: ASPIRIN 81 MG TABLET CHEW PO SCH (21:26)
[2020-12-22] MEDS: PAROXETINE 20 MG TABLET PO SCH (21:27)
[2020-12-22] MEDS: METHOCARBAMOL 500 MG TABLET PO PRN (23:33)
[2020-12-23 01:18] VITALS: BP 123/80
[2020-12-23] MEDS: HEPARIN 5,000 UNITS/ML, 1ML SQ SCH ×2 (01:18→08:41)
[2020-12-23] MEDS: LEVOTHYROXINE 88 MCG TABLET PO SCH (05:42)
[2020-12-23] MEDS: INSULIN LISPRO 100 UNITS/ML, PEN SQ-INSULIN SCH ×2 (07:00→12:09)
[2020-12-23 07:19] VITALS: BP 124/80
[2020-12-23] MEDS: AMOXICILLIN/CLAV 875-125MG TABLET PO SCH (08:41)
[2020-12-23] MEDS: SENNA/DOCUSATE TABLET PO SCH (08:41)
[2020-12-23] MEDS: GABAPENTIN 100 MG CAPSULE PO SCH (08:41)
[2020-12-23] MEDS: COLCHICINE 0.6 MG CAPSULE PO SCH (08:41)
[2020-12-23] MEDS: SODIUM CHLORIDE FLUSH 10ML SYR IVF SCH (08:42)
[2020-12-23 13:58] VITALS: BP 127/82
[2020-12-23] MEDS ORDERED: AMOX1TAB12 PO (14:53)
[2020-12-23] MEDS ORDERED: GABA-826 PO (14:53)
== END 2020-12-23 16:15 | DRG 602 ==
LOC: ED 12:50 → EDIP 13:30 → 3N 15:17
PROVIDERS: ADMIT Internal Medicine; ATTEND Family Medicine
DX: L03.115 Cellulitis of right lower limb (principal); R53.2 Functional quadriplegia; E87.1 Hypo-osmolality and hyponatremia; Z20.822 Contact with and (suspected) exposure to COVID-19; E11.65 Type 2 diabetes mellitus with hyperglycemia; D64.9 Anemia, unspecified; E03.9 Hypothyroidism, unspecified; G71.00 Muscular dystrophy, unspecified; I10 Essential (primary) hypertension; J45.909 Unspecified asthma, uncomplicated; K59.09 Other constipation; L03.116 Cellulitis of left lower limb; M10.9 Gout, unspecified; Z82.0 Family history of epilepsy and other diseases of the nervous system; Z79.4 Long term (current) use of insulin; Z82.3 Family history of stroke; Z88.6 Allergy status to analgesic agent; Z79.899 Other long term (current) drug therapy
CPT/HCPCS: 20610; 36415; 80048; 80053; 80202; 81003; 82550; 82607; 82962; 83735; 84100; 84145; 84443; 84550; 85025; 87040; 87070; 87205; 89060; 93970; 96360; 96361; G0378; J0295; J1644; J2405; J3370; U0005; J1815; J7030; J7050; U0003

== ENCOUNTER 2021-01-24 07:38 | Emergency (ER) | payer MEDICARE, MEDICAID ==
[~2021-01-24] VITALS: Ht 167.6 cm; Wt 67.5 kg
[~2021-01-24 07:38] MED LIST changes: +AMOX1TAB12 PO; +GABA-826 PO; +OXYC1TAB14 PO
--- NOTE | 2021-01-24 07:48 | NUR ---
BIBA FOR GENERALIZED NEUROPATHY PAIN THROUGHOUT BODY. PT ATTACHED TO MONITORS. VSS. NADN. PT POSTIONED TO COMFORT. AWAITNG ORDERS
[2021-01-24] MEDS ORDERED: ZIPRASIDONE 20 MG INJ IM ONE ×2 (08:00→08:16)
--- NOTE | 2021-01-24 08:28 | NUR ---
PT MEDICATED BY EMAR. VSS. CASTANEDA
[2021-01-24 08:56] LABS: BASOPHILS % (AUTO) 1 % (0-1); EOSINOPHILS % (AUTO) 0 % (1-7); LYMPHOCYTES % (AUTO) 9 % (22-44); MEAN CORPUSCULAR HEMOGLOBIN 27.5 pg (27.5-34.5); MEAN CORPUSCULAR HGB CONC 32.7 g/dL (33.2-36.2); MEAN PLATELET VOLUME 7.6 fL (7.4-10.4); MONOCYTES % (AUTO) 13 % (2-9); NEUTROPHILS % (AUTO) 78 % (42-75); PLATELET COUNT 331 x10^3/uL (130-400); RED BLOOD COUNT 3.99 x10^6/uL (4.38-5.82); RED CELL DISTRIBUTION WIDTH 17.4 % (9.4-14.8)
[2021-01-24 09:03] LABS: ALBUMIN 2.9 g/dL (3.4-5.0); ANION GAP 4 mmol/L (5-15); CALCIUM 9.6 mg/dL (8.5-10.1); CHLORIDE 102 mmol/L (98-107); CREATININE 1.11 mg/dL (0.7-1.3)
[2021-01-24 09:12] VITALS: BP 133/80
--- NOTE | 2021-01-24 09:13 | NUR ---
PT BACK OF RADIOLOGY. VSS. CASTANEDA
[2021-01-24 09:24] LABS: HCT (SEDRATE) 33.6 % (39.2-51.8)
--- NOTE | 2021-01-24 10:21 | NUR ---
PT MEDICALLY CLEARED BY DR. AYON. PT UP FOR DC AND STATING HE WILL NOT LEAVE AND IS STAYING. PT STATES "I CAN'T WALK OR STAND OR MOVE" PT SEEN BY THIS RN AND DR. AYON ADJUSTING SELF IN BED WELL THROWING SELF ON BED WHEN TOLD HE WAS BEING DISCHARGED. SECURITY CALLED AND PT HAD TO BE ESCORTED OUT. PT ABLE TO STAND AND PIVIT ON WHEELCHAIR ON OWN. PT LEFT WITH ALL BELONGINGS.
== END 2021-01-24 10:26 | disposition home or self-care (01) ==
LOC: ED 10:20
DX: M79.671 Pain in right foot (principal); G89.29 Other chronic pain; M25.531 Pain in right wrist; M25.561 Pain in right knee; L03.115 Cellulitis of right lower limb; I10 Essential (primary) hypertension; E11.65 Type 2 diabetes mellitus with hyperglycemia; E11.40 Type 2 diabetes mellitus with diabetic neuropathy, unspecified
CPT/HCPCS: 36415; 73110; 73564; 73630; 80048; 82040; 85025; 85651; 86140; 96372; 99284; J3486